=== PATIENT | female | born 1990 | race African-American/Black ===

== ENCOUNTER 2023-03-14 12:11 | Emergency (ER) | payer MEDICAID, SELFPAY ==
--- NOTE | ~2023-03-14 | CT_ITS ---
EXAMINATION: CT brain wo con INDICATION: Seizure COMPARISON: 01/12/2014 TECHNIQUE: Standard unenhanced head CT. The dose-length product (DLP) was 605.33 mGy-cm. The mA was a djusted according to patient size. Iterative reconstruction technique was employed. FINDINGS: No intracranial hemorrhage, acute infarction, or abnormal mass lesion. The ventricles are n ormal. No abnormal mass effect or midline shift. The santos-white matter differentiation is normal. The basal cisterns are patent. The orbits are normal. The paranasal sinuses, mastoids and calvarium are normal. IMPRESSION: 1. No acute intracranial abnormality. Reviewed, dictated and finalized at location [facility]
[2023-03-14 12:11] VITALS: BP 106/71; PULSE 77; RESP 13; TEMP 36.4; O2SAT 94
--- NOTE | 2023-03-14 12:23 | ECG_ITS ---
Measurements Intervals [place] Rate: 80 P: 38 FL: 173 QRS: 43 QRSD: 66 T: 28 QT: 353 QTc: 409 Interpretive Statements SINUS RHYTHM BASELINE ARTIFACT- III, AVR, AVL, AVF NORMAL ECG NO PREVIOUS ECG AVAILABLE FOR COMPARISON Electronically Signed On 03-15-2023 19:14:49 MEDICAL LAB SCIENTIST by Efren Guzman D.O.
--- NOTE | 2023-03-14 14:19 | ED.GENADULT ---
HPI - General Adult General Chief complaint: Seizure Stated complaint: SZ Time Seen by Provider: 03/14/23 13:03 History of Present Illness HPI narrative: 32-year-old female with history of seizure disorder that is not compliant with her seizure medications presents to the ED after having a seizure. Patient states that she has not taken her Dilantin approximately the last week and she states she normally only takes it every few days. Patient currently has no power at her house and has not been able to find her medication. Related Data Allergies Allergy/AdvReac Type Severity Reaction Status Date / Time diphenhydramine Allergy Unknown Swelling Verified 01/18/15 02:02 Review of Systems Review of Systems: All systems reviewed & are unremarkable except as noted in HPI and below Exam Narrative: APPEARANCE: Well appearing, no pain, no distress, well-nourished. HEAD: normocephalic, atraumatic. EYES: PERRLA/EOMI, conjunctivae clear. NOSE: Normal no drainage EARS:TMS clear with good light reflex. THROAT: Pharynx clear, no exudate. NECK: Supple. No adenopathy, no masses. RESPIRATORY: Airway patent, respirations nonlabored. Clear to auscultation bilaterally, no rales, rhonchi, wheezing. CARDIOVASCULAR: Regular rate and rhythm without murmurs rubs or gallops. ABDOMINAL: Soft, nontender, nondistended, normal bowel sounds MUSCULOSKELETAL: Moves all extremities. Strength/ROM intact, No edema, No calf tenderness. NEURO: Slurred speech which patient states is typical for post seizure. SKIN: Warm, dry. Normal Color Course Course Emergency Course: 32-year-old female presenting ED for evaluation of seizure with possible prolonged postictal phase. Patient feels she is back to her baseline at this time. Patient is alert and appropriate. Patient was willing to be treated with Dilantin. patient reports she does feel improved. Patient was encouraged to restart her oral medication. Family member is present and confirms that this is the patient at her baseline. Patient denies complaints at this time. Patient was comfortable with plan for discharge and close follow-up. Vital Signs Vital signs: Vital Signs Temperature 97.6 F 03/14/23 12:11 Pulse Rate 77 03/14/23 12:11 Respiratory Rate 13 03/14/23 12:11 Blood Pressure 106/71 03/14/23 12:11 Pulse Oximetry 94 03/14/23 12:11 Oxygen Delivery Room Air 03/14/23 12:11 Temperature 97.6 F 03/14/23 12:11 Pulse Rate 65 03/14/23 16:28 Respiratory Rate 14 03/14/23 16:28 Blood Pressure 107/75 03/14/23 16:28 Pulse Oximetry 97 03/14/23 16:28 Oxygen Delivery Room Air 03/14/23 12:23 Medical Decision Making Differential Diagnosis Differential Diagnosis: Seizure, COVID, prolonged postictal phase, altered mental status Vital Signs Vital Signs: Vital Signs Temperature 97.6 F 03/14/23 12:11 Pulse Rate 77 03/14/23 12:11 Respiratory Rate 13 03/14/23 12:11 Blood Pressure 106/71 03/14/23 12:11 Pulse Oximetry 94 03/14/23 12:11 Oxygen Delivery Room Air 03/14/23 12:11 Temperature 97.6 F 03/14/23 12:11 Pulse Rate 65 03/14/23 16:28 Respiratory Rate 14 03/14/23 16:28 Blood Pressure 107/75 03/14/23 16:28 Pulse Oximetry 97 03/14/23 16:28 Oxygen Delivery Room Air 03/14/23 12:23 Lab Data Lab results reviewed: Yes I reviewed the patient's lab results. 03/14/23 14:42 03/14/23 14:42 Labs: Lab Results 03/14/23 03/14/23 Range/Units 14:42 14:50 WBC 8.5 (4.5-10.0) K/mm3 RBC 4.44 (4.2-5.4) M/mm3 Hgb 13.4 (12.0-15.0) g/dL Hct 39.9 (37.0-47.0) % MCV 89.9 (80-100) fl MCH 30.2 (26-34) pg MCHC 33.6 (32-36) g/dl RDW 12.1 (11.5-14.5) % Plt Count 191 (150-375) k/mm3 MPV 9.7 (7.4-10.4) fl Immature Gran % (Auto) 0.4 (0-0.5) % Neut % (Auto) 53.3 (45.5-73.1) % Lymph % (Auto) 40.2 (18.3-44.2) % [place] % (Auto) 4.5 (2.6-8.5) % Eo
[2023-03-14 14:48] LABS: Basophils Percent Auto 0.5 % (0.2-1.2); Eosinophils Absolute Auto 0.1 K/mm3 (0-0.3); Eosinophils Percent Auto 1.1 % (0-4.4); Hematocrit 39.9 % (37.0-47.0); Hemoglobin 13.4 g/dL (12.0-15.0); Immature Granulocyte Absolute 0.03 K/mm3 (0.00-0.031); Immature Granulocyte Percent A 0.4 % (0-0.5); Lymphocytes Percent Auto 40.2 % (18.3-44.2); Mean Corpuscular HGB Conc 33.6 g/dl (32-36); Mean Corpuscular Hemoglobin 30.2 pg (26-34); Mean Corpuscular Volume 89.9 fl (80-100); Mean Platelet Volume 9.7 fl (7.4-10.4); Monocytes Absolute Auto 0.4 K/mm3 (0.1-0.6); Monocytes Percent Auto 4.5 % (2.6-8.5); Neutrophils Absolute Auto 4.5 K/mm3 (1.3-6.7); Neutrophils Percent Auto 53.3 % (45.5-73.1); Platelet Count Result 191 k/mm3 (150-375); Red Blood Count 4.44 M/mm3 (4.2-5.4); Red Cell Distribution Width 12.1 % (11.5-14.5); White Blood Count 8.5 K/mm3 (4.5-10.0)
[2023-03-14] MEDS: PHENYTOIN SODIUM INJ (*BKC) 1,000 MG in SODIUM CHLORIDE 0.9% IV 100 ML 360 MG IVPB (14:57)
[2023-03-14 14:59] LABS: Lactic Acid Reflex 0.8 mmol/L (0.7-2.0)
[2023-03-14 15:00] LABS: Alanine Aminotransferase 12 U/L (6-35); Albumin Level 4.3 g/dL (3.5-5.1); Alkaline Phosphatase 39 U/L (38-126); Anion Gap 12 mmol/L (8-16); Aspartate Amino Transferase 25 U/L (14-36); Bilirubin,Total 0.9 mg/dL (0.2-1.3); Blood Urea Nitrogen 11 mg/dL (7-17); Calcium 9.4 mg/dL (8.4-10.2); Carbon Dioxide 23 mmol/L (22-30); Chloride 103 mmol/L (98-107); Estimated CRCL calculation 115 ml/min; Estimated Glomerular Filt Rate > 60; Glucose 78 mg/dL (65-110); Potassium 3.3 mmol/L (3.4-5.0); Sodium 138 mmol/L (137-145)
[2023-03-14] MEDS: SODIUM CHLORIDE 0.9% IV 1,000 ML 999 ML IV CONT (15:21)
[2023-03-14 15:22] VITALS: BP 108/75; PULSE 76; RESP 13; O2SAT 96
[2023-03-14 15:23] LABS: Appearance Urine Clear (Clear); Bacteria Urine None Seen /hpf; Bilirubin Urine Negative (Negative); Blood Urine Trace (Negative); Color Urine Yellow (Yellow); Glucose Urine UA Negative (Negative); Ketones Urine 1+ mg/dL (Negative); Leukocyte Esterase Ur Negative LEU/UL (Negative); Nitrate Urine Negative (Negative); Non Pathogenic Casts 0-2; Protein Urine Negative (Negative); RBC Urine 0-2 /hpf (0-2); Specific Grav Ur 1.016 (1.001-1.035); Squamous Epithelial Cell Urine None seen /hpf (Few); Urobilinogen Urine 0.2 mg/dL (<2.0); WBC Urine 0-5 /hpf
--- NOTE | 2023-03-14 15:24 | PC.NURSE ---
This RN verified pt allergies and gave pt ordered dose of dilantin. Pt started complaining of burning up the arm once dilantin was started. Pt started to moan, yell, and thrash around. MD made aware. MD hampton titrated the dilantin down to 40mg/min. Pt still complained of pain and burning. MD at bedside, discontinued medication.
[2023-03-14 15:28] LABS: Add Urine Microscopic? YES
[2023-03-14 15:44] LABS: Barbiturate Screen Urine Negative (Negative); Benzodiazepines Screen Urine Positive (Negative)
[2023-03-14 15:55] LABS: Amphetamine Screen Urine Negative (Negative); Cannabinoid Screen Urine Negative (Negative); Cocaine Screen Urine Negative (Negative); Methadone Screen Urine Negative (Negative); Opiate Screen Urine Negative (Negative); Phencyclidine Screen Urine Negative (Negative)
[2023-03-14] MEDS: PHENYTOIN SODIUM 100 MG EXTENDED RELEASE CAP 300 MG PO (16:22)
[2023-03-14 16:28] VITALS: BP 107/75; PULSE 65; RESP 14; O2SAT 97
== END 2023-03-14 16:29 | disposition home or self-care (01) ==
PROVIDERS: Emergency Provider Emergency Medicine
DX: G40.909 Epilepsy, unspecified, not intractable, without status epilepticus (principal); T42.0X6A Underdosing of hydantoin derivatives, initial encounter
CPT/HCPCS: 36415; 70450; 80053; 80307; 81001; 81025; 83605; 85025; 93005; 96361; 96365; 99284; A9270; J1165; J7030